=== PATIENT | male | born 1995 | race Caucasian/White ===

== ENCOUNTER 2016-11-16 22:46 | Emergency (ER) | payer MEDICAID, OTHER ==
[2016-11-16] MEDS ORDERED: SODIUM CHLORIDE 0.9% 1,000 ML ONE (23:35)
== END 2016-11-17 00:47 | disposition home or self-care (01) ==
LOC: ED 22:46
DX: F10.129 Alcohol abuse with intoxication, unspecified (principal); R11.2 Nausea with vomiting, unspecified; F17.220 Nicotine dependence, chewing tobacco, uncomplicated
CPT/HCPCS: 99282; 96360; 99283; J7030